=== PATIENT | male | born 1955 | race Caucasian/White ===

== ENCOUNTER 2019-06-06 08:23 | Outpatient (CLI) | payer BC, SELFPAY ==
[2019-06-06 08:44] LABS: Hematocrit 45.7 % (40.0-54.0); Hemoglobin 15.5 g/dL (14.0-18.0); Mean Corpuscular HGB Conc 33.9 g/dL (32.0-36.0); Mean Corpuscular Hemoglobin 29.5 pg (27.0-31.0); Mean Corpuscular Volume 86.9 fL (78.0-102.0); Mean Platelet Volume 9.2 fl (8.7-11.0); Platelet Count Result 215 K/mm3 (150-420); Red Blood Count 5.26 M/mm3 (4.70-6.10); Red Cell Distribution Width 13.3 % (11.6-14.4); White Blood Count 8.7 K/mm3 (4.8-10.8)
[2019-06-06 09:21] LABS: Anion Gap 13.7 mmol/L (7-16); Blood Urea Nitrogen 22 mg/dL (7-18); Carbon Dioxide 27 mmol/L (21-32); Chloride 107 mmol/L (98-108); Cholesterol 179 mg/dL (0-200); Estimated Glomerular Filt Rate 50; Glucose 90 mg/dL (70-99); HDL Direct 47 mg/dL (40-60); LDL Cholesterol Calculated 122 mg/dL (<130); Osmolality Calculated 299 mOsm/kg (285-295); Potassium 4.7 mmol/L (3.5-5.1); Sodium 143 mmol/L (136-145); Triglycerides 49 mg/dL (0-150)
[2019-06-08 21:07] LABS: H pylori, Urea Breath NOT DETECTED (NOT DETECTED)
== END 2019-06-06 08:24 | disposition home or self-care (01) ==
LOC: CHSLAB 08:28
PROVIDERS: PCP Family Medicine; Visit Provider Family Medicine
DX: Z00.00 Encounter for general adult medical examination without abnormal findings (principal); K21.9 Gastro-esophageal reflux disease without esophagitis; I10 Essential (primary) hypertension
CPT/HCPCS: 36415; 80048; 80061; 83013; 85027

== ENCOUNTER 2019-06-23 08:19 | Day surgery (SDC) | payer BC, SELFPAY | END 2019-06-23 11:45 | disposition home or self-care (01) | LOC: CHSSURGERY 08:21 | PROVIDERS: PCP Family Medicine; Visit Provider Surgery | DX: Z12.11 Encounter for screening for malignant neoplasm of colon (principal); D12.8 Benign neoplasm of rectum | CPT/HCPCS: 45380; 812; 88305; J2405; J2704; J7120 ==

== ENCOUNTER 2020-02-07 07:56 | Outpatient (CLI) | payer MEDICARE, SELFPAY ==
[2020-02-07 09:36] LABS: Prostate Specific Antigen 3.5 ng/mL (< OR = 4.0)
== END 2020-02-07 07:57 | disposition home or self-care (01) ==
LOC: CHSLAB 07:59
PROVIDERS: PCP Family Medicine; Visit Provider Family Medicine
DX: R35.0 Frequency of micturition (principal); Z12.5 Encounter for screening for malignant neoplasm of prostate
CPT/HCPCS: 36415; 84153; G0103

== ENCOUNTER 2021-01-24 13:26 | Outpatient (CLI) | payer MEDICARE, SELFPAY ==
--- NOTE | 2021-01-24 13:31 | ECHO_ITS ---
Patient Info Name: Calin Somers Age: 65 years : 1955 Gender: Male Ht: 70 in Wt: 205 lbs BSA: 2.17 m2 HR: 66 bpm BP: 146 / 82 mmHg Exam Date: 01/24/2021 1:42 PM Exam Location: [facility] [place] Patient Status: Outpatient Admit Date: 01/24/2021 Staff Ordering Physician: Meng Licea DO Shutdown Coordinator: Aditya Aranda, MACY, RT Attending Provider: Meng Licea DO Referring Physician: Anuja BROCK; Exam Type: CA echo doppler color flow Study Info Indications R01.1 - Cardiac murmur, unspecified Complete two-dimensional, color flow and Doppler transthoracic echocardiogram is performed. Summary 1. Complete two-dimensional, color flow and Doppler transthoracic echocardiogram is performed. 2. Left ventricular chamber dimension is normal. 3. Left ventricular systolic function is normal, estimated at 60-65%. 4. There is mildly increased left ventricular wall thickness. 5. The left ventricular diastolic function is abnormal. 6. E/e' 10 is mildly elevated. 7. Left atrial chamber dimension is moderately enlarged. 8. There is moderate mitral valve regurgitation. ERO 0.1 cm2, MR RF 9%. Left Ventricle E/e' 10 is mildly elevated. Left ventricular chamber dimension is normal. Left ventricular systolic function is normal, estimated at 60-65%. There is mildly increased left ventricular wall thickness. The left ventricular diastolic function is abnormal. Right Ventricle Right ventricular systolic function is normal and with normal TAPSE 1.8 cm. Right ventricular chamber dimension is normal. Left Atria Left atrial chamber dimension is moderately enlarged. Right Atria Right atrial chamber dimension is normal. Aortic Valve The aortic valve is trileaflet. There is no aortic valve stenosis. There is no aortic valve regurgitation. Pulmonic Valve There is no pulmonic regurgitation. Mitral Valve There is moderate mitral valve regurgitation. ERO 0.1 cm2, MR RF 9%. There is no mitral valve stenosis. Tricuspid Valve There is no tricuspid valve regurgitation. Pericardium/Pleural There is no pericardial effusion. Inferior Vena Cava Normal inferior vena cava with >50% collapse upon inspiration consistent with normal right atrial pressure, 5 mmHg. Aorta The aortic root size at the sinus of Valsalva is normal. Left Ventricular Outflow Tract Name Value Normal LVOT 2D LVOT Diameter 2.1 cm LVOT Doppler LVOT Peak Velocity 101 cm/s LVOT Peak Gradient 4 mmHg LVOT Mean Gradient 2 mmHg LVOT VTI 22 cm LVOT VTI/AV VTI Ratio 0.7 LVOT Stroke Volume 76 ml Mitral Valve Name Value Normal MV 2D/MM MV Annulus Diameter (4C) 3.8 cm <=4.4 MV Doppler
== END 2021-01-24 13:27 | disposition home or self-care (01) ==
LOC: CHSIMG 13:27
PROVIDERS: PCP Family Medicine; Visit Provider Family Medicine
DX: R01.1 Cardiac murmur, unspecified (principal)
CPT/HCPCS: 93306

== ENCOUNTER 2021-03-05 14:40 | Outpatient (CLI) | payer MEDICARE, SELFPAY ==
[2021-03-05 14:50] LABS: Hematocrit 43.5 % (37.0-46.0); Hemoglobin 14.8 g/dL (12.4-15.3); Mean Corpuscular Hemoglobin 29.7 pg (27.0-31.0); Mean Corpuscular Volume 87.2 fL (78.0-102.0); Mean Platelet Volume 8.9 fl (8.7-11.0); Platelet Count Result 232 K/mm3 (150-420); Red Blood Count 4.99 M/mm3 (4.70-6.10); Red Cell Distribution Width 12.9 % (11.6-14.4); White Blood Count 7.8 K/mm3 (4.8-10.8)
[2021-03-05 15:28] LABS: Alanine Aminotransferase 27 U/L (16-63); Albumin Level 3.8 g/dL (3.4-5.0); Alkaline Phosphatase 90 U/L (46-116); Anion Gap 10 mmol/L (8-16); Aspartate Amino Transferase 21 U/L (15-37); Bilirubin,Total 0.6 mg/dL (0.00-1.00); Blood Urea Nitrogen 16 mg/dL (7-18); Calcium 8.9 mg/dL (8.5-10.1); Carbon Dioxide 27 mmol/L (21-32); Chloride 104 mmol/L (98-108); Cholesterol 161 mg/dL (0-200); Estimated Glomerular Filt Rate 57; Glucose 91 mg/dL (70-99); HDL Direct 43 mg/dL (40-60); LDL Cholesterol Calculated 104 mg/dL (<130); Osmolality Calculated 293 mOsm/kg (285-295); Potassium 4.1 mmol/L (3.5-5.1); Prostate Specific Antigen 6.1 ng/mL (< OR = 4.0); Sodium 141 mmol/L (136-145); Total Protein 7.2 g/dL (6.4-8.2); Triglycerides 69 mg/dL (0-150)
== END 2021-03-05 14:41 | disposition home or self-care (01) ==
LOC: CHSLAB 14:41
PROVIDERS: PCP Family Medicine; Visit Provider Family Medicine
DX: R35.1 Nocturia (principal); R31.9 Hematuria, unspecified; I10 Essential (primary) hypertension
CPT/HCPCS: 36415; 80053; 80061; 84153; 85027

== ENCOUNTER 2021-04-22 14:33 | Outpatient (CLI) | payer MEDICARE, SELFPAY ==
[2021-04-25 11:26] LABS: PSA, Free 1.03 ng/mL; PSA, Total 2.9 ng/mL (<=4.0); Percent Free Prostate Spec Ag 36 % (>25)
== END 2021-04-22 14:34 | disposition home or self-care (01) ==
LOC: CHSLAB 14:35
PROVIDERS: PCP Family Medicine; Visit Provider Family Medicine
DX: R31.9 Hematuria, unspecified (principal); R97.20 Elevated prostate specific antigen [PSA]
CPT/HCPCS: 36415; 84153; 84154

== ENCOUNTER 2021-05-02 07:21 | Outpatient (CLI) | payer MEDICARE, SELFPAY ==
[2021-05-02 07:39] LABS: Add Urine Microscopic? NO; Appearance Urine Clear (Clear); Bilirubin Urine Negative (Negative); Blood Urine Negative (Negative); Color Urine Yellow (Yellow); Glucose Urine UA Negative (Negative); Ketones Urine Negative (Negative); Leukocyte Esterase Ur Negative LEU/UL (Negative); Nitrate Urine Negative (Negative); Protein Urine Negative (Negative); Urobilinogen Urine 0.2 mg/dL (0.2-1.0)
== END 2021-05-02 07:22 | disposition home or self-care (01) ==
LOC: CHSLAB 07:23
PROVIDERS: PCP Family Medicine; Visit Provider Family Medicine
DX: R31.9 Hematuria, unspecified (principal)
CPT/HCPCS: 81003

== ENCOUNTER 2021-08-14 14:33 | Outpatient (CLI) | payer MEDICARE, SELFPAY ==
--- NOTE | ~2021-08-14 | XR_ITS ---
EXAM: XR lumbar spine 2-3V HISTORY: worsening chronic low back pain NKI COMPARISON: None available FINDINGS: 5 nonrib-bearing lumbar-type vertebral bodies. Pedicles intact. Normal vertebral body alig nment. Vertebral body heights preserved. Multilevel mild disc narrowing and marginal osteophytosis, m ost advanced at L5-S1. Multilevel facet sclerosis and hypertrophy. IMPRESSION: Multilevel degenerative disc disease and facet arthropathy. Reviewed, dictated and finalized at location K.
== END 2021-08-14 14:34 | disposition home or self-care (01) ==
LOC: CHSIMG 14:39
PROVIDERS: PCP Family Medicine; Visit Provider Family Medicine
DX: M48.00 Spinal stenosis, site unspecified (principal)
CPT/HCPCS: 72100

== ENCOUNTER 2021-09-19 10:04 | Outpatient (CLI) | payer MEDICARE, SELFPAY ==
--- NOTE | ~2021-09-19 | XR_ITS ---
XR sacroiliac joints min 3V 09/19/2021 10:40 Indication: Left hip pain Procedure: 3 views left hip Comparison: No prior studies for comparison. Findings: The sacroiliac joints are symmetric bilaterally without significant degenerative change, er osion or ankylosis. Sacral foramen are symmetric. Surrounding osseous structures within normal limits . Impression: 1: No significant abnormality of the sacroiliac joints. Reviewed, dictated and finalized at location B. Impression: 1: No significant abnormality of the sacroiliac joints.
--- NOTE | ~2021-09-19 | XR_ITS ---
XR hip LT min 2V 09/19/2021 10:40 Indication: Left hip pain Procedure: 2 views left Comparison: No prior studies for comparison. Findings: Moderate osteoarthritis of the left hip. No fracture or traumatic malalignment. No soft tis duyen abnormality. No foreign bodies. Impression: 1: Moderate osteoarthritis of the left hip. Reviewed, dictated and finalized at location B. Impression: 1: Moderate osteoarthritis of the left hip.
== END 2021-09-19 10:05 | disposition home or self-care (01) ==
LOC: CHSIMG 10:08
PROVIDERS: PCP Family Medicine
DX: M16.12 Unilateral primary osteoarthritis, left hip (principal); M46.1 Sacroiliitis, not elsewhere classified; M25.552 Pain in left hip
CPT/HCPCS: 72202; 73502

== ENCOUNTER 2021-10-16 07:44 | Outpatient (CLI) | payer MEDICARE, SELFPAY ==
--- NOTE | ~2021-10-16 | CT_ITS ---
EXAMINATION: CT abdomen pelvis wo/w con DATE: 10/16/2021 08:52 INDICATION: Gross hematuria TECHNIQUE: Computed tomography (CT) of the abdomen and pelvis was performed without intravenous contr ast. CT of the abdomen and pelvis was then performed with a total of 130 mL Omnipaque 300 intravenous contrast using a double-bolus technique for simultaneous opacification of the renal parenchyma and r enal collecting system. The dose-length product (DLP) was 1827.99 mGy-cm. Automated exposure control and iterative reconstruction technique were employed. COMPARISON: None FINDINGS: There is mild atelectasis of the lower lobes, right greater than left. There is a small sli ding hiatal hernia. There is mild bilateral gynecomastia. The heart size is normal. Calcified coronar y artery atherosclerosis is present. Calcified subcarinal lymph nodes are consistent with old granulo matous disease. The liver, pancreas, gallbladder, and adrenal glands are normal. Punctate calcificati ons in an otherwise normal spleen likely represent healed granulomatous disease. No stones are identi fied in the kidneys, ureters, or bladder. There is no hydronephrosis or hydroureter. There are peripe lvic cysts of the kidneys. Cysts of the kidneys measure up to 12 mm on the left. No suspicious renal or urothelial lesion is identified. There is circumferential wall thickening of the urinary bladder. The prostate is enlarged. No pathologically enlarged abdominal or pelvic lymph nodes are identified. There is no free intraperitoneal gas or evidence of bowel obstruction. The appendix is normal. Small hydroceles are noted. There is severe lower lumbar spondylosis. IMPRESSION: 1. No CT correlate for the patient's symptoms. 2. Circumferential wall thickening of the urinary bladder which could reflect chronic outlet obstruct ion versus cystitis. Reviewed, dictated and finalized at location B. IMPRESSION: 1. No CT correlate for the patient's symptoms. 2. Circumferential wall thickening of the urinary bladder which could reflect c hronic outlet obstruction versus cystitis.
[2021-10-16 08:07] LABS: Estimated Glomerular Filt Rate 56
== END 2021-10-16 07:45 | disposition home or self-care (01) ==
LOC: CHSIMG 07:45
PROVIDERS: PCP Family Medicine; Visit Provider Urology
DX: R31.9 Hematuria, unspecified (principal)
CPT/HCPCS: 74178; Q9967

== ENCOUNTER 2023-02-06 07:17 | Outpatient (CLI) | payer MEDICARE, SELFPAY ==
--- NOTE | ~2023-02-06 | US_ITS ---
EXAMINATION: US carotid duplex BI DATE: 02/06/2023 14:09 INDICATION: Right headedness TECHNIQUE: Grayscale, color Doppler, and pulsed Doppler images of the cervical carotid arteries were obtained. The degree of vessel stenosis is placed in one of the following categories: normal, <50%, 5 0-69%, >=70% but less than near-occlusion, near-occlusion, or total occlusion. Note that percent sten osis relative to normal distal artery lumen diameter is indirectly measured from velocity measurement s as described by Bull, et al. Radiology 2003; 229:340-346. Notes: Normal: Peak systolic velocity <125 centimeters/sec and no plaque <50%. Peak systolic velocity <125 ( EDV <40; ICA/CCA PSV ratio <2.0; used these factors only a tandem lesions or low cardiac output or co ntralateral disease) 50-69 %: PSV 125-230 (EDV 40-100; ratio 2-4) >= 70% but less than near occlusion: PSV greater than 230 (EDV > 100; ratio> 4.0) Near Occlusion: PSV that is variable; markedly narrowed lumen Occlusion: Absent flow on color/spectral Doppler and no lumen on lin scale. COMPARISON: None. FINDINGS: RIGHT: The right common carotid artery (CCA) peak systolic velocity (PSV) is 118 cm/s. The right internal ca rotid artery (ICA) PSV is 90 cm/s. The right ICA end-diastolic velocity (EDV) is 16 cm/s. The right I CA/CCA PSV ratio is 0.76. The external carotid artery (ECA) PSV is 98 cm/s. There is antegrade flow i n the right vertebral artery. LEFT: The left CCA PSV is 106 cm/s. The left ICA PSV is 82 cm/s. The left ICA EDV is 36 cm/s. The left ICA/ CCA PSV ratio is 0.77. The ECA PSV is 121 cm/s. There is antegrade flow in the left vertebral artery . IMPRESSION: 1. Less than 50% stenosis in the right internal carotid artery by sonographic criteria. 2. Less than 50% stenosis in the left internal carotid artery by sonographic criteria. Reviewed, dictated and finalized at location B. IMPRESSION: 1. Less than 50% stenosis in the right internal carotid artery by sonographic c vasquez. 2. Less than 50% stenosis in the left internal carotid artery by sonographic cr ramona.
[2023-02-06 07:32] LABS: Basophils Absolute Auto 0.03 K/mm3 (0.00-0.10); Basophils Percent Auto 0.4 % (0.0-1.0); Eosinophils Absolute Auto 0.13 K/mm3 (0.02-0.50); Eosinophils Percent Auto 1.7 % (1.0-6.0); Hematocrit 43.5 % (37.0-46.0); Hemoglobin 14.7 g/dL (12.4-15.3); Immature Granulocyte Absolute 0.03 K/mm3 (0.00-0.00); Immature Granulocyte Percent A 0.4 % (0.0-0.0); Lymphocytes Percent Auto 10.7 % (18.0-42.0); Mean Corpuscular HGB Conc 33.8 g/dL (32.0-36.0); Mean Corpuscular Hemoglobin 29.9 pg (27.0-31.0); Mean Corpuscular Volume 88.4 fL (78.0-102.0); Mean Platelet Volume 9.2 fl (8.7-11.0); Monocytes Absolute Auto 0.62 K/mm3 (0.10-0.90); Monocytes Percent Auto 8.3 % (2.0-11.0); Neutrophils Absolute Auto 5.9 K/mm3 (1.7-7.2); Neutrophils Percent Auto 78.5 % (50.0-70.0); Platelet Count Result 206 K/mm3 (150-420); Red Blood Count 4.92 M/mm3 (4.70-6.10); White Blood Count 7.5 K/mm3 (4.8-10.8)
[2023-02-06 08:37] LABS: Alanine Aminotransferase 19 U/L (16-63); Albumin Level 3.6 g/dL (3.4-5.0); Alkaline Phosphatase 91 U/L (46-116); Anion Gap 9 mmol/L (8-16); Aspartate Amino Transferase 11 U/L (15-37); Blood Urea Nitrogen 23 mg/dL (7-18); Calcium 9.3 mg/dL (8.5-10.1); Carbon Dioxide 26 mmol/L (21-32); Chloride 107 mmol/L (98-108); Cholesterol 182 mg/dL (0-200); Estimated Glomerular Filt Rate 51; Glucose 88 mg/dL (70-99); HDL Direct 48 mg/dL (40-60); LDL Cholesterol Calculated 123 mg/dL (<130); Magnesium 1.9 mg/dL (1.8-2.4); Osmolality Calculated 296 mOsm/kg (285-295); Potassium 4.5 mmol/L (3.5-5.1); Sodium 142 mmol/L (136-145); Total Protein 6.9 g/dL (6.4-8.2); Triglycerides 57 mg/dL (0-150)
[2023-02-06 09:05] LABS: Thyroid Stimulating Hormone Reflex 3.94 u/IU/mL (0.36-3.74)
[2023-02-06 09:33] LABS: Free T4 Free Thyroxine Reflex 0.99 ng/dL (0.76-1.46)
== END 2023-02-06 07:18 | disposition home or self-care (01) ==
LOC: CHSIMG 07:18
PROVIDERS: PCP Family Medicine; Visit Provider Family Medicine
DX: E11.9 Type 2 diabetes mellitus without complications (principal); R42 Dizziness and giddiness; I10 Essential (primary) hypertension; R00.2 Palpitations; I65.23 Occlusion and stenosis of bilateral carotid arteries
CPT/HCPCS: 36415; 80053; 80061; 83735; 84439; 84443; 85025; 93880

== ENCOUNTER 2023-02-09 08:19 | Outpatient (CLI) | payer MEDICARE, SELFPAY ==
--- NOTE | 2023-02-11 12:35 | WPDHOLTEREM ---
Holter/Event Monitor Holter/Event Monitor Date of procedure: 02/09/23 Holter/Event Procedure: 48 Hr Holter Monitor Indications: Palpitations Conclusion: 1. 48 hour holter monitor on 02/09/23. 2. Predominant rhythm is sinus rhythm. HR range 42-117 bpm; average HR 63 bpm. HR at 42 bpm was at 01:41. 3. There are 34 premature supraventricular complexes and 18 supraventricular couplets. There are 3 episodes of atrial tachycardia, fastest at 132 bpm and longest lasting 10 beats. 4. There are 873 premature ventricular complexes, 5 ventricular couplets, 1 ventricular triplet, 50 ventricular bigeminy, and 3 ventricular trigeminy. There is one episode of ventricular tachycardia at 120 bpm lasting 7 beats at 05:32. 5. No sinoatrial or atrioventricular blocks. No significant pauses greater than 2 seconds. 6. No symptoms available for correlation.
== END 2023-02-09 08:20 | disposition home or self-care (01) ==
LOC: CHSCARD 08:20
PROVIDERS: PCP Family Medicine; Visit Provider Family Medicine
DX: I50.30 Unspecified diastolic (congestive) heart failure (principal); I38 Endocarditis, valve unspecified; I10 Essential (primary) hypertension
CPT/HCPCS: 93225; 93226

== ENCOUNTER 2023-08-13 08:55 | Outpatient (CLI) | payer MEDICARE, SELFPAY | END 2023-08-13 08:56 | disposition home or self-care (01) | LOC: CHSIMG 08:56 | PROVIDERS: PCP Family Medicine; Visit Provider Family Medicine | DX: M25.561 Pain in right knee (principal) | CPT/HCPCS: 73562 ==

== ENCOUNTER 2024-10-03 08:26 | Day surgery (SDC) | payer MEDICARE, SELFPAY ==
[2024-08-02 09:53] VITALS: BMI 28.8
[2024-10-03 08:45] VITALS: BP 168/85; PULSE 61; RESP 16; TEMP 36.8; O2SAT 100; BMI 29.0
--- NOTE | 2024-10-03 09:03 | P.PNAN_ITS ---
Anes - Eval Pre Procedure Procedure: Operation Date: 10/03/24 10:00 Proposed Procedures p Screening Colonoscopy - Frandy Hilton DO Date/Time: 10/03/24 09:03 Pre Op Diagnosis: History of Colon Polyps Patient Data Age: 69 Gender: M Height: 1.78 m Weight: 92 kg Last Vital Signs Temp 98.3 F 10/03/24 08:45 Pulse 61 10/03/24 08:45 Resp 16 10/03/24 08:45 BP 168/85 H 10/03/24 08:45 Pulse Ox 100 10/03/24 08:45 O2 Del Method Room Air 10/03/24 08:45 Allergies Allergy/AdvReac Type Severity Reaction Status Date / Time fentanyl Allergy Severe Nausea and Verified 09/22/24 13:13 Vomiting Home Medications ?Medication ?Instructions ?Recorded ?Confirmed ?Type finasteride 5 mg tablet 5 mg PO DAILY 02/05/23 10/03/24 History lisinopril 20 mg tablet See Rx Instructions .Route 07/18/24 10/03/24 Rx .COMPLEX #90 tabs metoprolol succinate 25 mg See Rx Instructions .Route 07/18/24 10/03/24 Rx tablet,extended release 24 hr .COMPLEX #90 tabs omeprazole 40 mg capsule,delayed See Rx Instructions .Route 09/12/24 10/03/24 Rx release .COMPLEX #90 caps Patient hx anesthesia problems: none Family hx anesthesia problems: none Prior surgeries: ASA2 Results Review: All pre-operative results and documents have been reviewed as part of the pre- operative evaluation. [facility] Past Medical History Medical History Hypertension GERD (gastroesophageal reflux disease) Overweight Surgical History Surgical History History of left knee surgery Orthoscopic. May 2013. Family History Family History Father Carcinoma of colon Social History Social History Smoking status: Never smoker Lack of Transportation: No Lack of Food: Never True Current Housing: I Have Housing Concerned About Future Housing: No Difficulty Paying Gas/Electric Bills: No Difficulty Paying for Meds: No Currently Unemployed: No Education: High School Diploma/GED Difficulty w/ Childcare or Family Care: No Living arrangements: with family Additional living arrangements comments: . Exam Day of Procedure 10/03/24 09:03 Heart: regular rate and rhythm Lungs: clear to auscultation Airway: Mallampati scale class II Neurological: alert and oriented
[2024-10-03] MEDS: LACTATED RINGERS 1,000 ML 150 ML IV CONT (09:05)
--- NOTE | 2024-10-03 09:39 | PM.IMHP ---
H&P: HPI History of Present Illness Date/Time: 10/03/24 09:39 Chief Complaint: hx colon polyps, fam hx colon cancer Narrative: 69 yo man presents for colonoscopy. Last done 5 years ago and polyp removed at that time. Father had colon cancer. Denies hematochezia or melena. Review of Systems Review of Systems: All systems reviewed & are unremarkable except as noted in HPI and below Constitutional: Constitutional: Denies chills, Denies fever(s), Denies headache(s) and Denies weight loss Eyes: Eyes: Denies change in vision ENT: Denies dizziness, Denies headache(s), Denies neck mass and Denies throat swelling Cardiovascular: Cardiovascular: Denies chest pain, Denies lightheadedness and Denies dyspnea Respiratory: Respiratory: Denies cough, Denies dyspnea and Denies wheezing Gastrointestinal: Gastrointestinal: Denies abdominal pain, Denies change in bowel habits, Denies nausea and Denies vomiting Genitourinary: Genitourinary: Denies hematuria and Denies dysuria Musculoskeletal: Musculoskeletal: Reports as per HPI Integumentary/Breasts: Skin/Breast: Reports as per HPI Neurologic: Denies dizziness and Denies headache(s) Allergic/Immunologic: Allergic/Immunologic: Denies throat swelling and Denies wheezing PMFSH Past Medical History Medical History Hypertension GERD (gastroesophageal reflux disease) Overweight Surgical History Surgical History History of left knee surgery Orthoscopic. May 2013. Family History Family History Father Carcinoma of colon Social History Social History Smoking status: Never smoker Lack of Transportation: No Lack of Food: Never True Current Housing: I Have Housing Concerned About Future Housing: No Difficulty Paying Gas/Electric Bills: No Difficulty Paying for Meds: No Currently Unemployed: No Education: High School Diploma/GED Difficulty w/ Childcare or Family Care: No Living arrangements: with family Additional living arrangements comments: . Meds Home Medications and Allergies Home Medications ?Medication ?Instructions ?Recorded ?Confirmed ?Type finasteride 5 mg tablet 5 mg PO DAILY 02/05/23 10/03/24 History lisinopril 20 mg tablet See Rx Instructions .Route 07/18/24 10/03/24 Rx .COMPLEX #90 tabs metoprolol succinate 25 mg See Rx Instructions .Route 07/18/24 10/03/24 Rx tablet,extended release 24 hr .COMPLEX #90 tabs omeprazole 40 mg capsule,delayed See Rx Instructions .Route 09/12/24 10/03/24 Rx release .COMPLEX #90 caps Allergies Allergy/AdvReac Type Severity Reaction Status Date / Time fentanyl Allergy Severe Nausea and Verified 09/22/24 13:13 Vomiting Vital Signs Vital Signs - 24 hr 10/03/24 08:45 Temperature 98.3 F Pulse Rate 61 Respiratory Rate 16 Blood Pressure 168/85 H Pulse Oximetry 100 Oxygen Delivery Room Air Exam Const: General: no acute distress and alert Orientation/consciousness: patient oriented x3 HENMT: Head: normocephalic and atraumatic Ears: hearing grossly normal bilaterally Face/Nose/Sinus: Normal nares present Mouth: Yes Normal oral and palatal mucosa present Eyes: Periorbital: periorbital findings normal Sclera: sclerae normal EOM: EOMs intact bilaterally Neck: Neck: normal visual inspection, no lymphadenopathy and trachea midline Chest: Chest palpation & inspection: normal inspection of the chest Resp: Effort & Inspection: normal respiratory effort Auscultation: clear to auscultation bilaterally Cardio: Jugular venous distension: no JVD Rate: regular rate Rhythm: regular rhythm Heart sounds: S1 normal heart sound present and S2 normal heart sound present Peripheral pulses: Peripheral pulses 2+ throughout GI: Inspection: normal to inspection GI Palp: Yes Soft to palpation, No Tenderness to palpation present (GI), No Guarding due to palpation present (GI) and No Rebound tenderness present Percussion: Yes normal to percussion Auscultation: normal bowel sounds : General: Yes no CVA tenderness Back/Spine/Pelvis: Back: no CVA tenderness Neuro: General: patient oriented x3, no focal motor deficits and CN's II-XI intact bilaterally Cognition (Neuro): normal cognition Speech: normal speech Motor exam (neuro): 5/5 motor strength present throughout Extrem: General: capillary refill normal and no clubbing, cyanosis or edema Assessment and Plan Assessment and plan (1) Hx of colonic polyps: Code(s): Z86.0100 - Personal history of colon polyps, unspecified Status: Acute Assessment and Plan: I have recommended colonoscopy. I have discussed the procedure, risks, benefits, and alternatives. Questions were answered. Patient is agreeable to proceed. (2) Family hx of colon cancer: Code(s): Z80.0 - Family history of malignant neoplasm of digestive organs Status: Acute
[2024-10-03 10:33] VITALS: BP 96/63; PULSE 53; RESP 14; O2SAT 99
--- NOTE | 2024-10-03 10:35 | WPDANESPN ---
Anes - Prog Note Post-Op Date/Time: 10/03/24 10:35 Vital Signs: Last Vital Signs Temp 98.3 F 10/03/24 08:45 Pulse 61 10/03/24 08:45 Resp 16 10/03/24 08:45 BP 168/85 H 10/03/24 08:45 Pulse Ox 100 10/03/24 08:45 O2 Del Method Room Air 10/03/24 08:45 Pain Score (VAS): no I/O: Intake & Output 10/02/24 10/03/24 10/03/24 23:59 07:59 15:59 Intake Total 200 Balance 200 Patient Feedback: Patient satisfied with anesthetic care.
[2024-10-03 10:43] VITALS: BP 116/73; PULSE 55; RESP 14; O2SAT 99
[2024-10-03 10:53] VITALS: BP 123/75; PULSE 55; RESP 16; O2SAT 98
== END 2024-10-03 11:03 | disposition home or self-care (01) ==
PROVIDERS: PCP Family Medicine; Visit Provider Surgery
PROC: 0DJD8ZZ Inspection of Lower Intestinal Tract, Via Natural or Artificial Opening Endoscopic (ICD-10-PCS; CPT 45378; principal; 2024-10-03 10:00)
DX: Z12.11 Encounter for screening for malignant neoplasm of colon (principal); D12.5 Benign neoplasm of sigmoid colon; K64.8 Other hemorrhoids; Z80.0 Family history of malignant neoplasm of digestive organs
CPT/HCPCS: 45385

== ENCOUNTER 2024-10-03 08:49 | Outpatient (NON) | payer MEDICARE, SELFPAY ==
--- NOTE | 2024-10-03 | S_PTH ---
PATIENT: Calin Somers LOC: [facility]#:[id number] AGE/SX: 69/M ROOM: RE10/03/[address]: Frandy Hilton DO : 1955 BED: DIS: 10/03/2024 SPEC #: [id number] RECD: 10/04/24 09:54 STATUS: ROSANNA REQ #: [id number] KRISS: 10/03/24 00:[address]: Frandy Hilton DEPT: [facility] Surgical RECD BY: Emery Meredith ENTERED: 10/04/24 09:54 SP TYPE: Surgical OTHR DR: Meng Licea DO Tissues: A - Colon Polypectomy Procedures: Hematoxylin and Eosin Stain Gross and Microscopic Level 4
== END 2024-10-03 08:50 | disposition home or self-care (01) ==
LOC: ANHLAB 10-04 08:55
PROVIDERS: PCP Family Medicine; Visit Provider Surgery
DX: D12.5 Benign neoplasm of sigmoid colon (principal)
CPT/HCPCS: 88305

== ENCOUNTER 2024-10-11 11:45 | Outpatient (CLI) | payer MEDICARE, SELFPAY ==
--- OUTSIDE RECORDS SUMMARY | 2024-10-11 11:48 | XMS_ITS | Clinical Summary ---
Author Organization [facility] Address [address] [place] [address] Care Team Providers Care Customer Leader Name Role Phone Meng Licea DO Primary Care Provider [phone] Allergies Active Allergy Reactions Criticality Noted Date Comments Fentanyl Vomiting 12/31/2020 Medications lisinopril 20 MG tablet Take 20 mg by mouth daily. Active tamsulosin 0.4 MG Cap Take 0.4 mg by mouth nightly. Active famotidine 40 MG tablet Take by mouth daily. Active Social History Tobacco Use Types Packs/Day Years Used Date Smoking Tobacco: Never Smokeless Tobacco: Never Alcohol Use Standard Drinks/Week Comments Never 0 (1 standard drink = 0.6 oz pur e alcohol) Sex and Gender Information Value Date Recorded Sex Assigned at Not on file Legal Sex Male 10:51 PM CDT Gender Identity Not on file Sexual Orientation Not on file Last Filed Vital Signs Vital Sign Reading Time Taken Comments Blood Pressure 139/68 01/07/2021 10:47 AM CDT Pulse 58 01/07/2021 10:47 AM CDT Temperature 37.1 C (98.8 F) 01/07/2021 8:39 AM CDT Respiratory Rate 16 01/07/2021 10:47 AM CDT Oxygen Saturation 99% 01/07/2021 10:47 AM CDT Inhaled Oxygen Concentration - - Weight 92.5 kg (204 lb) 12/31/2020 10:00 AM CDT Height 177.8 cm (5' 10) 12/31/2020 10:00 AM CDT Body Mass Index 29.27 12/31/2020 10:00 AM CDT Plan of Treatment Health Maintenance Due Date Last Done Comments Colorectal Cancer Screening Colonoscopy (10 Years) 1955 Hepatitis C 1972 DTaP, Tdap and Td Vaccines ( 1 - Tdap) 1973 Pneumococcal Vaccine: 50+ Years (1 of 1 - PCV) 2004 Zoster Vaccines (1 of 2) 2004 Annual Medicare Wellness Visit 08/14/2019 COVID-19 Vaccine (3 - 2023-2 5 season) 2023 06/22/2020, 06/01/2020 RSV Immunization or 60+ Years (1 - 1-dose 75+ series) 2029 Meningococcal B Vaccine Aged Out No l onger eligible based on patient's age to complete this topic Meningococcal Vaccine Aged Out No mitch jacek eligible based on patient's age to complete this topic RSV Immunizations Under 20 Months Aged Out No longer eligible b ased on patient's age to complete this topic Medical Devices Implanted Type Area Tinning Machine Set Up Operator Device Identifier Shelf Expiration Date Model / Serial / Lot Iol [employer] Zcb00 - [id number] Implanted:Qty: 1 on 12/03/2020 by Danilo Aldrich MD at [facility] Lens Left: Eye [employer] ZCB00 / [id number] / Iol [place] [employer] Zcb00 - [id number] Implanted:Qty: 1 on 01/07/2021 by Danilo Aldrich MD at [facility] Lens Right: Eye [employer] 02/24/2024 ZCB00 / [id number] / Insurance [facility] Care Teams Customer Leader Relationship Specialty Start Date End Date Meng Licea DO [address] [place] [address] PCP - General FAMILY PRACTICE 01/04/21
--- NOTE | 2024-10-11 11:54 | ECHO_ITS ---
Patient Info Name: Calin Somers Age: 69 years : 1955 Gender: Male Ht: 70 in Wt: 205 lbs BSA: 2.17 m2 HR: 73 bpm BP: 188 / 107 mmHg Technical Quality: Good Exam Date: 10/11/2024 11:55 AM Patient Status: O Admit Date: 10/11/2024 Exam Type: CA echo doppler color flow Complete two-dimensional, color flow and Doppler transthoracic echocardiogram is performed. Job Developer For Deaf Adults: Odilia Buck Attending Provider: Meng Licea Summary 1. Complete two-dimensional, color flow and Doppler transthoracic echocardiogram is performed. 2. Left ventricular chamber dimension is normal. 3. Left ventricular systolic function is normal, estimated at 55-60. 4. There is mild concentric increased left ventricular wall thickness. 5. The left ventricular diastolic function is abnormal. 6. E/e' 11 is mildly elevated. 7. Left atrial chamber dimension is severely enlarged. 8. There is mild aortic valve sclerosis. 9. There is moderate mitral valve regurgitation. 10. There is trace tricuspid valve regurgitation. 11. Mild pulmonary hypertension, estimated pulmonary arterial systolic pressure is 42 mmHg. Left Ventricle E/e' 11 is mildly elevated. Left ventricular chamber dimension is normal. Left ventricular systolic function is normal, estimated at 55-60. There is mild concentric increased left ventricular wall thickness. The left ventricular diastolic function is abnormal. Right Ventricle Right ventricular chamber dimension is normal. Right ventricular systolic function is normal and with normal TAPSE 2.4 cm. Left Atria Left atrial chamber dimension is severely enlarged. Right Atria Right atrial chamber dimension is normal. Aortic Valve The aortic valve is trileaflet. There is mild aortic valve sclerosis. There is no aortic valve stenosis. There is no aortic valve regurgitation. Pulmonic Valve There is no pulmonic regurgitation. Mitral Valve There is no mitral valve stenosis. There is moderate mitral valve regurgitation. Tricuspid Valve There is trace tricuspid valve regurgitation. Mild pulmonary hypertension, estimated pulmonary arterial systolic pressure is 42 mmHg. Pericardium/Pleural There is no pericardial effusion. Inferior Vena Cava Normal inferior vena cava with >50% collapse upon inspiration consistent with normal right atrial pressure, 5 mmHg. Aorta The aortic root size at the sinus of Valsalva is normal. Left Ventricular Outflow Tract Name Value Normal LVOT 2D LVOT Diameter 2.0 cm LVOT Doppler LVOT Peak Velocity 124 cm/s LVOT Peak Gradient 6 mmHg LVOT Mean Gradient 3 mmHg LVOT VTI 21 cm LVOT VTI/AV VTI Ratio 0.7 LVOT Stroke Volume 64 ml LVOT CO 4.4 l/min LVOT CI 2.0 l/min/m2 Pulmonic Valve Name Value Normal PV Doppler PV Peak Velocity 80 cm/s PV Peak Gradient 3 mmHg PV Regurgitation Doppler KS Peak End Diastolic Velocity 117 cm/s Mitral Valve Name Value Normal MV Doppler MV Peak Gradient 4 mmHg MV Mean Gradient 1 mmHg MV Area (Cont Eq VTI) 2.6 cm2 MV Regurgitation Doppler MR Peak Gradient 203 mmHg MV Diastolic Function MV E Peak Velocity 103 cm/s MV A Peak Velocity 60 cm/s MV E/A 1.7 MV Decel Time (PW) 237 ms MV Annular TDI MV E/e' (Septal) 15.6 MV E/e' (Lateral) 8.8 MV E/e' (Average) 12.2 Tricuspid Valve Name Value Normal TV Regurgitation Doppler TR Peak Velocity 306 cm/s TR Peak Gradient 30 mmHg Estimated PAP/RSVP RA Pressure 5 mmHg <=5 PA Systolic Pressure 42 mmHg <36 RV Systolic Pressure 42 mmHg <36 TV Annular TDI TV Lateral Maya s' Velocity 11.0 cm/s >=9.5 Aortic Valve Name Value Normal AV Doppler AV Peak Velocity 151 cm/s AV Peak Gradient 9 mmHg AV Mean Gradient 4 mmHg AV VTI 29 cm AV Area (Cont Eq VTI) 2.2 cm2 >=3.0 AV Area (Cont Eq Sandip) 2.5 cm2 AV DI (Sandip) 0.82 AV Regurgitation 2D LVOT Area 3.1 cm2 Ventricles Name Value Normal LV Dimensions 2D/MM IVS Diastolic Thickness (2D) 1.1 cm 0.6-1.0 LVID Diastole (2D) 5.6 cm 4.2-5.8 LVIW Diastolic Thickness (2D) 1.1 cm 0.6-1.0 LVID Systole (2D) 4.1 cm 2.5-4.0 LVOT Diameter 2.0 cm LV Mass (2D Cubed) 244.37 g 88.00-224.00 LV Mass Index (2D Cubed) 113 g/m2 49-115 Relative Wall Thickness (2D) 0.38 <=0.42 LV Fractional Shortening/Ejection Fraction 2D/MM LV Fractional Shortening (2D) 28 % 25-43 LV EF (2D Teichholz) 53 % LV Diastolic Volume (4C MOD) 85 ml LV EF (4C MOD) 56 % LV Diastolic Volume (2C MOD) 128 ml LV EF (2C MOD) 58 % LV Diastolic Volume (BP MOD) 104 ml 62-150 LV Diastolic Volume Index (BP MOD) 48 ml/m2 34-74 LV Systolic Volume (BP MOD) 47 ml 21-61 LV Systolic Volume Index (BP MOD) 22 ml/m2 11-31 LV EF (BP MOD) 55 % 52-72 LV Diastolic Length (4C) 8.3 cm LV Systolic Length (4C) 6.5 cm LV Stroke Volume (4C MOD) 48 ml Atria Name Value Normal LA Dimensions LA Volume (4C A-L) 119 ml LA Volume (BP A-L) 117 ml RA Dimensions RA Systolic [place] Length (4C) 5.5 cm 2.1-2.7 RA Area (4C) 11.9 cm2 <=18.0 Report Signatures
== END 2024-10-11 11:46 | disposition home or self-care (01) ==
LOC: CHSIMG 11:46
PROVIDERS: PCP Family Medicine; Visit Provider Family Medicine
DX: I27.20 Pulmonary hypertension, unspecified (principal); I08.0 Rheumatic disorders of both mitral and aortic valves
CPT/HCPCS: 93306

== ENCOUNTER 2024-11-09 07:08 | Outpatient (CLI) | payer MEDICARE, SELFPAY ==
--- OUTSIDE RECORDS SUMMARY | 2024-11-09 07:12 | XMS_ITS | Clinical Summary ---
Author Organization [facility] Address [address] [place] [address] Care Team Providers Care Advanced Practice Provider Name Role Phone Meng Licea DO Primary Care Provider [phone] Allergies Active Allergy Reactions Criticality Noted Date [...] this topic Medical Devices Implanted Type Area Rehabilitation Counsellor Device Identifier Shelf Expiration Date Model / Serial / Lot Iol [employer] Zcb00 - [id number] Implanted:Qty: 1 on 12/03/2020 by Danilo Aldrich MD at [facility] Lens Left: Eye [employer] ZCB00 / [id number] / Iol [employer] Zcb00 - [id number] Implanted:Qty: 1 on 01/07/2021 by Danilo Aldrich MD at [facility] Lens Right: Eye [employer] 02/24/2024 ZCB00 / [id number] / Insurance [facility] Care Teams Advanced Practice Provider Relationship Specialty Start Date End Date Meng Licea DO [address] [place] [address] PCP - General FAMILY PRACTICE 01/04/21
[2024-11-09 07:19] LABS: Hematocrit 41.0 % (37.0-46.0); Hemoglobin 13.7 g/dL (12.4-15.3); Immature Granulocyte Percent A 0.4 % (0.0-0.0); Lymphocytes Absolute Auto 0.94 K/mm3 (1.10-4.50); Mean Corpuscular HGB Conc 33.4 g/dL (32-36); Mean Corpuscular Hemoglobin 29.8 pg (27.0-31.0); Mean Corpuscular Volume 89.1 fL (78.0-102.0); Nucleated Red Blood Cells Absolute Auto 0.00 K/mm3 (0.00-0.00); Nucleated Red Blood Cells Perc 0.0 % (0-0.0); Platelet Count Result 212 K/mm3 (150-420); Red Blood Count 4.60 M/mm3 (4.70-6.10); White Blood Count 5.7 K/mm3 (4.8-10.8)
[2024-11-09 08:05] LABS: Alanine Aminotransferase 19 U/L (6-50); Albumin Level 3.8 g/dL (3.5-5.1); Alkaline Phosphatase 70 U/L (38-126); Anion Gap 4 mmol/L (4-12); Aspartate Amino Transferase 25 U/L (17-59); Bilirubin,Total 1.0 mg/dL (0.2-1.3); Blood Urea Nitrogen 16 mg/dL (9-20); Calcium 8.6 mg/dL (8.4-10.2); Carbon Dioxide 24 mmol/L (22-30); Chloride 113 mmol/L (98-107); Cholesterol 154 mg/dL (0-200); Estimated Glomerular Filt Rate 58; Glucose 88 mg/dL (65-110); HDL Direct 44 mg/dL; Magnesium 1.8 mg/dL (1.6-2.3); Osmolality Calculated 292 mOsm/kg (285-295); Potassium 4.5 mmol/L (3.4-5.0); Sodium 141 mmol/L (137-145); Total Protein 6.5 g/dL (6.3-8.2); Triglycerides 48 mg/dL (<150)
[2024-11-09 08:35] LABS: Thyroid Stimulating Hormone Reflex 5.020 uIU/mL (0.465-4.68)
[2024-11-09 09:05] LABS: Free T4 Free Thyroxine Reflex 1.08 ng/dL (0.78-2.19)
== END 2024-11-09 07:09 | disposition home or self-care (01) ==
LOC: CHSLAB 07:10
PROVIDERS: PCP Family Medicine; Visit Provider Internal Medicine Cardiovascular Disease
DX: I10 Essential (primary) hypertension (principal)
CPT/HCPCS: 36415; 80053; 80061; 83735; 84439; 84443; 84480; 85025

== ENCOUNTER 2024-12-03 19:55 | Outpatient (CLI) | payer MEDICARE, SELFPAY ==
[2024-12-27 12:52] VITALS: BMI 29.2
--- NOTE | 2024-12-27 12:52 | WPDSLEEPSTUD ---
Sleep Study Date of Study: 12/03/24 Ordering Provider: Zac Galvez DO Interpreting Physician: Nathalia Thompson DO Sleep Study Type: Split Polysomnogram Height: 1.78 m Weight: 92.533 kg Body Mass Index: 29.2 Neck Circumference (inches): 15 Stewart: 7 Reason for Sleep Study Witnessed apneas and snoring Sleep History The patient is a 69-year-old male that a sleep study ordered by the his scientist electronics for evaluation of sleep apnea. The patient occasionally awakens from sleep short of breath. He rarely awakens at night with heartburn, belching or cough. He constantly snores loudly enough that others complain. He occasionally has trouble sleeping when he has a cold. He occasionally wakes up gasping for air throughout the night. He frequently has breathing problems at night observed by himself or others. He denies sweating excessively at night. He occasionally has heart palpitations or irregular heartbeats during the night. He occasionally falls asleep during the day but never while driving. He denies sleep paralysis, cataplexy and hypnagogic/ hypnopompic hallucinations. He denies having trouble at school or work due to sleepiness. He denies feeling afraid of going to sleep. He denies having nightmares. He rarely remembers his dreams. He rarely has thoughts racing through his mind. He denies feeling sad, depressed or anxious. He rarely has muscular tension. He denies noticing parts of his body jerk. He occasionally kicks during the night. He occasionally has crawling and aching feelings in his legs and occasionally has leg pain during the night. He denies grinding his teeth during sleep and denies awakening with morning jaw pain. He is rarely bothered by pain during the day but occasionally awakened by pain during the night. He frequently wakes up feeling stiff in the morning. He frequently wakes up with sore or achy muscles. He frequently wakes up with pain in the neck, spine and other joints. He goes to bed between 9:00 p.m. to 1:00 a.m. every night. He takes him an hour to fall asleep. He wakes up 1-2 times throughout the night to urinate and is able to fall back asleep immediately. He wakes up between 3-5 a.m. every morning. He typically gets 3-4 hours of sleep per night. He currently lives with his . He denies consuming any caffeinated beverages within 2 hours of bedtime. He denies engaging in physical exercise before bedtime. He denies reading before falling asleep. He will watch television before falling asleep. He will take naps in afternoon or the evening and they are refreshing. He consumes 3 cups of caffeinated beverage per day. He denies tobacco, alcohol and recreational use. [facility] Past Medical History Medical History Hypertension GERD (gastroesophageal reflux disease) Overweight Surgical History Surgical History History of left knee surgery Orthoscopic. May 2013. Family History Family History Father Carcinoma of colon Social History Social History Smoking status: Never smoker Alcohol intake: never Substance use type: does not use Lack of Transportation: No Lack of Food: Never True Current Housing: I Have Housing Concerned About Future Housing: No Difficulty Paying Gas/Electric Bills: No Difficulty Paying for Meds: No Currently Unemployed: No Education: High School Diploma/GED Difficulty w/ Childcare or Family Care: No Living arrangements: with family Additional living arrangements comments: . Spiritual care concerns: No Medications Home Medications ?Medication ?Instructions ?Recorded ?Confirmed ?Type finasteride 5 mg tablet 5 mg PO DAILY 02/05/23 11/08/24 History omeprazole 40 mg capsule,delayed See Rx Instructions .Route 09/12/24 11/08/24 Rx release .COMPLEX #90 caps lisinopril 20 mg tablet See Rx Instructions .Route 10/17/24 11/08/24 Rx .COMPLEX #90 tabs eszopiclone 3 mg tablet (Lunesta) 3 mg PO ONCE #3 tabs 11/29/24 Rx metoprolol succinate 25 mg See Rx Instructions .Route 12/19/24 Rx tablet,extended release 24 hr .COMPLEX #90 ea Sleep Procedure A full night split study using the [place] multi-channel system recorded the standard physiologic parameters including EEG, EOG, submentalis EMG, anterior tibialis EMG, EKG, body position, nasal and oral airflow using nasal pressure sensor and thermistor.? Respiratory parameters of chest and abdominal movements were recorded with Respiratory Inductance Plethysmography belts. Oxygen saturation was recorded by pulse oximetry. Video monitoring was also performed. Sleep stages, periodic limb movements, and EEG arousals were scored in 30 second epochs according to the criteria of the AASM Scoring Manual. The Apnea-Hypopnea Index was calculated using [facility] guidelines for definition of hypopnea with 4% O2 desaturations while scoring respiratory events. Sleep Architecture During the diagnostic portion of the study, the total recording time was 166.3 minutes. The total sleep time was 143.0 minutes. Sleep latency was 5.8 minutes.? REM sleep was not achieved during this portion of the study. Sleep Efficiency was 86.0%. The patient had 15 awakenings for an awakening index of 6.3. Wake after sleep onset time was 17.5 minutes. The patient spent 37.0 minutes, 25.9% of total sleep time in Stage N1. The patient spent 106.0 minutes, 74.1% in Stage N2. The patient spent 0.0 minutes, 0.0% in Stage N3. The patient spent 0.0 minutes, 0.0% in Stage REM sleep. At 01:04:08 AM the patient was placed on PAP treatment and was titrated at pressures ranging from 5 cm H20 up to 16/8/10 cm H20. During the treatment portion of the study, the total recording time was 310.4 minutes.? The total sleep time was 251.5 minutes. Sleep latency was 1.5 minutes. REM latency was 58.0 minutes. Sleep Efficiency was 81.0%. Wake after Sleep Onset time was 57.0 minutes. The patient spent 59.5 minutes, 23.7% of total sleep time in Stage N1. The patient spent 133.5 minutes, 53.1% in Stage N2. The patient spent 0.0 minutes, 0.0% in Stage N3. The patient spent 58.5 minutes, 23.3% in Stage REM. Respiratory Analysis During the diagnostic portion of the study, the patient had 5 hypopneas, 3 obstructive apneas, 93 mixed apneas, and 35 central apneas for an overall Apnea Hypopnea Index of 56.6 events per hour. The REM Apnea Hypopnea Index was 0. The NREM Apnea Hypopnea Index was 56.6. The patient had a Central Apnea Hypopnea Index of 14.7. Rito-Hicks Respirations was present during this portion of the study. Circulation time was 30.5 seconds and cycle length was 58.3 seconds. During the treatment portion of the study, the patient had 29 hypopneas, 1 obstructive apnea, 1 mixed apnea and 94 central apneas for an overall Apnea Hypopnea Index of 29.8 events per hour. The REM Apnea Hypopnea Index was 15.4. The NREM Apnea Hypopnea Index was 34.2. The patient had a Central Apnea Hypopnea Index of 22.4. Rito-Hicks Respirations were preset during this portion of the study. The patient was started on CPAP 5 cm H2O and titrated to BPAP 16/8 cm H2O with back-up rate of 10 breaths/min. The patient was able to fall asleep starting on CPAP 5 cm H2O. The patient was able to achieve REM sleep starting on CPAP 8 cm H2O with EPR of 3. The patient was able to achieve a residual AHI of 0 with both NREM and REM sleep on the final pressure. On BPAP 16/8 cm H2O with BR 10 breaths/min, the patient spent 20 minutes in NREM and 22 minutes in REM with no respiratory events, resulting in an AHI of 0. The patient had a sleep efficiency of 85.7% on this pressure setting. Arousals During the diagnostic portion of the study, there were a total of 86 arousals for an arousal index of 36.1.? There were 36 respiratory arousals for an index of 15.1. There were 0 periodic limb movement arousals for an index of 0.? There was 1 isolated limb movement arousal for an index of 0.4. There were 49 spontaneous arousals for an index of 20.6. During the treatment portion of the study, there were a total of 91 arousals for an index of 21.7.? There were 25 respiratory arousals for an index of 6.0. There was 1 periodic limb movement arousals for an index of 0.2.? There were 5 isolated limb movement arousals for an index of 1.2. There were 60 spontaneous arousals for an index of 14.3. Periodic Limb Movements During the diagnostic portion of the study, the patient had 8 isolated limb movements with an index of 3.4. The patient had 0 periodic limb movements with an index of 0. The patient had a total of 8 limb movements with a total limb movement index of 3.4. During the treatment portion of the study, the patient had 33 isolated limb movements with an index of 7.9. The patient had 4 periodic limb movements with an index of 1.0. The patient had a total of 37 limb movements with a total limb movement index of 8.8. Oximetry Data During the diagnostic portion of the study, the patient had an average oxygen saturation of 93.9% in wake with a minimum oxygen saturation of 84% and a maximum oxygen saturation of 98%. The patient had an average oxygen saturation of 93.2% in sleep with a minimum oxygen saturation of 79.0% and a maximum oxygen saturation of 98.0%. The patient had 134 oxygen desaturations resulting in an Oxygen Desaturation Index of 56.2. The patient spent 21.2 minutes, 13.1% of total sleep time with an oxygen saturation less than 88%. During the treatment portion of the study, the patient had an average oxygen saturation of 97.3% in wake with a minimum oxygen saturation of 91.0% and a maximum oxygen saturation of 100.0%. The patient had an average oxygen saturation of 97.2% in sleep with a minimum oxygen saturation of 88.0% and a maximum oxygen saturation of 100.0%. The patient had 115 oxygen desaturations resulting in an Oxygen Desaturation Index of 27.9. The patient spent 0.1 minutes, 0.1% of total sleep time with an oxygen saturation less than 88%. Snoring Profile Moderate snoring was present in the baseline portion of the study. The snoring resolved once the patient was titrated to BPAP 12/6 cm H2O. Cardiac Profile The EKG lead showed normal sinus rhythm with occasional PVCs. On Epoch 513, the patient had a run of 5 PVCs. During the diagnostic portion of the study, the average pulse rate was 51.3 bpm.? The minimum pulse rate was 44.0 bpm. The maximum pulse rate was 72.0 bpm. During the treatment portion of the study, the average pulse rate was 47.5 bpm.? The minimum pulse rate was 41.0 bpm. The maximum pulse rate was 71.0 bpm. EEG Profile No signs of seizure activity seen. Assessment and Plan Assessment and Plan (1) Treatment-emergent central sleep apnea: Code(s): T81.89XA - Other complications of procedures, not elsewhere classified, initial encounter; G47.33 - Obstructive sleep apnea (adult) (pediatric); G47.37 - Central sleep apnea in conditions classified elsewhere Status: Acute Assessment and Plan: In the baseline portion of the study, the patient had an overall AHI of 56.6 with desaturation down to 79%. He had a central apnea index of 14.7. This is consistent with severe sleep apnea. The patient was started on CPAP 5 cm H2O and titrated to BPAP 16/8 cm H2O with back-up rate of 10 breaths/min. The patient's sleep apnea resolved on the final pressure setting. I recommend that the patient be prescribed BPAP 16/8 cm H2O with back-up rate of 10 breaths/min, size medium Resmed AirFit F30i mask, BPAP filters/tubing and heated humidity. This should be used with all episodes of sleep.? Compliance should be reviewed within 31-90 days of starting therapy for usage greater than 4 hours per night greater than 70% of the nights. The patient should be asked about symptoms such as?excessive daytime sleepiness, quality of sleep, decreased nocturia, increased?mental functioning such as memory, mood, and concentration. (2) Rito-Hicks respiration: Code(s): R06.3 - Periodic breathing Status: Acute Assessment and Plan: Rito-Hicks Respirations were present throughout the study. Circulation time was 30.5 seconds and cycle length was 58.3 seconds. The patient's echocardiogram in October 2024 showed an ejection fraction of 55-60%. Data The data obtained during this sleep study is adequate for interpretation. Certification This sleep study has been reviewed by a board certified sleep medicine physician.
== END 2024-12-04 07:27 | disposition home or self-care (01) ==
LOC: CHSCSM 19:57
PROVIDERS: PCP Family Medicine; Visit Provider Internal Medicine Cardiovascular Disease
DX: G47.10 Hypersomnia, unspecified (principal); T81.89XA Other complications of procedures, not elsewhere classified, initial encounter; G47.33 Obstructive sleep apnea (adult) (pediatric); G47.37 Central sleep apnea in conditions classified elsewhere; R06.3 Periodic breathing
CPT/HCPCS: 95811

== ENCOUNTER 2024-12-22 08:59 | Outpatient (CLI) | payer MEDICARE, SELFPAY ==
--- NOTE | ~2024-12-22 | NM_ITS ---
EXAMINATION: NM nannette stress w perfusion DATE: 12/22/2024 11:53 INDICATION: Chest pain TECHNIQUE: Rest images were obtained following intravenous administration of 10.36 mCi Tc99m tetrofosmin (Myoview). The patient was infused intravenously with Lexiscan (Regadenoson). Then, 33.0 mCi Tc99m tetrofosmin (Myoview) was administered intravenously, and stress images were obtained. Data was rec onstructed into short axis and horizontal and vertical long axis SPECT images. Gated SPECT images were also obtained. COMPARISON: None. FINDINGS: Large severe perfusion defect involving the apical to basilar inferior wall, the apical lateral segment and the mid and basilar inferolateral segments. There is a small region of mild reversible decreased uptake at the mid anterior segment equivocal for ischemia. There is normal left ventricular chamber size and ejection fraction. Suggestion of akinesis at the inferolateral wall of the left ventricle however assessment is limited by the nearly indiscernible activity in this region. Left ventricular ejection fraction measures 58%. IMPRESSION: 1. Large severe nonreversible infarct involving the inferior wall, apical lateral and mid and basilar inferolateral segments. 2. Equivocal small mild region of ischemia at the mid anterior segment. 3. Left ventricular ejection fraction measuring 58%. Reviewed, dictated and finalized at location A. IMPRESSION: 1. Large severe nonreversible infarct involving the inferior wall, apical later al and mid and basilar inferolateral segments. 2. Equivocal small mild region of ischemia at the mid anterior segment. 3. Left ventricular ejection fraction measuring 58%.
--- NOTE | 2024-12-22 09:20 | EST_ITS ---
Patient Info Name: Calin Somers Age: 69 years : 1955 Gender: Male Ht: 70 in Wt: 205 lbs BSA: 2.17 m2 Exam Date: 12/22/2024 9:20 AM Patient Status: O Admit Date: 12/22/2024 Exam Type: CA stress nannette w NM A regadenoson stress test was performed. Staff Referring Physician: Zac Galvez DO Attending Provider: Zac Galvez DO Exercise Technologist: Denise Baptiste Exercise Physician: Zac Galvez DO Summary 1. 1. Negative lexiscan stress test for ischemic ST changes by ECG criteria. 2. 2. Baseline hypertension. 3. 3. Nuclear scan to follow and will be reported separately. Please correlate with it. 4. 4. Patient informed of the above results. Protocol: Lexiscan Stress ECG Details Stage: REST Duration (min): 1 min : 43 sec HR (bpm): 51 SBP (mmHg): 150 DBP (mmHg): 85 Stage: REST Duration (min): 7 min : 57 sec HR (bpm): 56 SBP (mmHg): 150 DBP (mmHg): 85 Stage: STAGE 1 Duration (min): 1 min : 0 sec HR (bpm): 79 SBP (mmHg): 176 DBP (mmHg): 100 Stage: RECOVERY Duration (min): 1 min : 0 sec HR (bpm): 87 SBP (mmHg): 176 DBP (mmHg): 100 Stage: RECOVERY Duration (min): 2 min : 0 sec HR (bpm): 82 SBP (mmHg): 175 DBP (mmHg): 95 Stage: RECOVERY Duration (min): 3 min : 0 sec HR (bpm): 77 SBP (mmHg): 165 DBP (mmHg): 88 Stage: RECOVERY Duration (min): 4 min : 0 sec HR (bpm): 83 SBP (mmHg): 165 DBP (mmHg): 88 Stage: RECOVERY Duration (min): 5 min : 0 sec HR (bpm): 78 SBP (mmHg): 171 DBP (mmHg): 90 Stage: RECOVERY Duration (min): 6 min : 0 sec HR (bpm): 77 SBP (mmHg): 171 DBP (mmHg): 90 Stage: RECOVERY Duration (min): 7 min : 0 sec HR (bpm): 74 SBP (mmHg): 168 DBP (mmHg): 90 Stage: RECOVERY Duration (min): 7 min : 2 sec HR (bpm): 74 SBP (mmHg): 168 DBP (mmHg): 90 Rest HR: 56 bpm Peak HR: 90 bpm Rest Sys BP: 150 mmHg Peak Sys BP: 176 mmHg Max Pred HR: 150 bpm % Max Pred HR: 60 % Target HR: 128 bpm Max RPP: 15,840 bpm*mmHg Termination Reason: Completed protocol Cardiac Symptoms: Shortness of breath Total Time: 1 min : 0 sec Rest Ortega BP: 85 mmHg Peak Ortega BP: 100 mmHg Total Dose: 0.4 mg Resting ECG Sinus bradycardia. Stress ECG No ST changes. Arrhythmias None. Report Signatures
== END 2024-12-22 09:00 | disposition home or self-care (01) ==
PROVIDERS: PCP Family Medicine; Visit Provider Internal Medicine Cardiovascular Disease
DX: I21.19 ST elevation (STEMI) myocardial infarction involving other coronary artery of inferior wall (principal); I10 Essential (primary) hypertension
CPT/HCPCS: 78452; 93017; A9502; J2785

== ENCOUNTER 2025-01-19 00:33 | Day surgery (SDC) | payer MEDICARE, SELFPAY ==
[2025-01-18 11:12] VITALS: BMI 29.7
[2025-01-19] VITALS (17 sets, daily range): BP systolic 136–170; BP diastolic 77–99; PULSE 47–66; RESP 12–20; TEMP 36.1; O2SAT 94–99; BMI 29.4
[2025-01-19 10:19] LABS: Hematocrit 45.0 % (42.0-52.0); Hemoglobin 15.3 g/dL (14.0-18.0); Immature Granulocyte Percent A 0.5 % (0-0.5); Lymphocytes Absolute Auto 1.06 K/mm3 (0.9-3.2); Mean Corpuscular HGB Conc 34.0 g/dl (32-36); Mean Corpuscular Hemoglobin 29.5 pg (26-34); Mean Corpuscular Volume 86.7 fl (80-100); Nucleated Red Blood Cells Absolute Auto 0.000 K/mm3 (0.0-0.012); Nucleated Red Blood Cells Perc 0.0 % (0.0-0.2); Platelet Count Result 200 k/mm3 (150-375); Red Blood Count 5.19 M/mm3 (4.6-6.20); White Blood Count 6.5 K/mm3 (4.5-10.0)
[2025-01-19 10:32] LABS: Anion Gap 10 mmol/L (4-12); Blood Urea Nitrogen 17 mg/dL (9-20); Calcium 9.4 mg/dL (8.4-10.2); Carbon Dioxide 24 mmol/L (22-30); Chloride 107 mmol/L (98-107); Estimated CRCL calculation 50 ml/min; Estimated Glomerular Filt Rate 57; Glucose 94 mg/dL (65-110); Potassium 4.8 mmol/L (3.4-5.0); Sodium 141 mmol/L (137-145)
--- NOTE | 2025-01-19 10:41 | WPDHPUPDATE1 ---
History and Physical Update Update Date/Time: 01/19/25 10:41 History and Physical has been reviewed, including an updated exam of the patient. There are NO changes in the patient's condition. Risks, benefits, and alternatives have been discussed and questions answered. Patient agrees to proceed with procedure.
--- NOTE | 2025-01-19 10:41 | WPDMODSED ---
Moderate Sedation Note-Pt Data Patient Data Allergies Allergy/AdvReac Type Severity Reaction Status Date / Time fentanyl Allergy Severe Nausea and Verified 01/18/25 11:08 Vomiting Home Medications ?Medication ?Instructions ?Recorded ?Confirmed ?Type finasteride 5 mg tablet 5 mg PO DAILY 02/05/23 01/18/25 History omeprazole 40 mg capsule,delayed See Rx Instructions .Route 09/12/24 01/18/25 Rx release .COMPLEX #90 caps metoprolol succinate 25 mg See Rx Instructions .Route 12/19/24 01/18/25 Rx tablet,extended release 24 hr .COMPLEX #90 ea aspirin 81 mg tablet 81 mg PO DAILY 12/28/24 01/18/25 History lisinopril 20 mg tablet See Rx Instructions .Route 01/16/25 01/18/25 Rx .COMPLEX #90 tabs Sedation/Anesthesia: No previous sedation/anesthesia problems (including family history). [facility] Past Medical History Medical History Hypertension GERD (gastroesophageal reflux disease) Overweight Surgical History Surgical History History of left knee surgery Orthoscopic. May 2013. Family History Family History Father Carcinoma of colon Social History Social History Smoking status: Never smoker Alcohol intake: never Substance use type: does not use Lack of Transportation: No Lack of Food: Never True Current Housing: I Have Housing Concerned About Future Housing: No Difficulty Paying Gas/Electric Bills: No Difficulty Paying for Meds: No Currently Unemployed: No Education: High School Diploma/GED Difficulty w/ Childcare or Family Care: No Living arrangements: with family Additional living arrangements comments: . Spiritual care concerns: No Mod Sed Physical Exam Physical Exam Pre Procedural Exam: Normal: Lungs, Heart Rate and Heart Rhythm Hours since solid foods: 12 Hours since liquid intake: 12 Mallampati Classification: class II Internal Medicine - PN: Obj Da Vital Signs Vital Signs: Vital Signs - 24 hr 01/19/25 10:21 Temperature 36.1 C L Pulse Rate 66 Respiratory Rate 18 Blood Pressure 170/99 H Pulse Oximetry 99 Oxygen Delivery Room Air Labs 01/19/25 10:14 01/19/25 10:14 Labs: Laboratory Results - last 24 hr 01/19/25 10:14 WBC 6.5 RBC 5.19 Hgb 15.3 Hct 45.0 MCV 86.7 MCH 29.5 MCHC 34.0 RDW 13.3 Plt Count 200 MPV 9.2 Immature Gran % (Auto) 0.5 Neut % (Auto) 73.3 H Lymph % (Auto) 16.3 L [place] % (Auto) 7.5 Eos % (Auto) 1.8 Baso % (Auto) 0.6 Lymph # (Auto) 1.06 [place] # (Auto) 0.5 Eos # (Auto) 0.1 Baso # (Auto) 0.0 Abs Immat Gran (auto) 0.03 Absolute Neuts (auto) 4.8 Absolute Nucleated RBC 0.000 Nucleated RBC % 0.0 Sodium 141 Potassium 4.8 Chloride 107 Carbon Dioxide 24 Anion Gap 10 BUN 17 Creatinine 1.26 Estim Creat Clear Calc 50 Estimated GFR 57 L Glucose 94 Calcium 9.4 ASA Classification/Sedation ASA Classification/Sedation ASA Class: III Emergent: No Risks: Risks, benefits and alternatives explained and patient/family accepted plan for sedation. Patient re-evaluated immediately prior to sedation.
--- NOTE | 2025-01-19 11:25 | WPDCARDPROC ---
Cardiac Cath Procedure Note Date of procedure:: 01/19/25 Performing physician:: CATHETERIZATION LABORATORY REPORT Procedure Date: 01/19/2025 Referring Physician: Dr. Galvez Anesthesia: Versed and Fentanyl were ordered and given in my presence at 1105, procedure ended at 1122. Supervision of nurse, Mari Joe monitored moderate sedation with 2 Versed and 1mg Morphine was provided for 17 minutes. 4mg Zofran IVP x 2 was administered due to nausea and vomiting due to cross reactivity of morphine to fentanyl allergy. Pre-op Diagnosis: Abnormal stress test Post-op Diagnosis: Severe multivessel CAD Procedure(s): Left heart catheterization with coronary angiography Access Site: Right radial artery Brief History and Clinical Indications: 69 year with hypertension and severe sleep apnea who has been experiencing exertional shortness of breath for which a stress test was significantly abnormal for which a left heart catheterization with possible PCI was recommended. All risks, benefits and alternatives to left heart catheterization with or without percutaneous coronary intervention was discussed at length with the patient. Risk of complications including but not limited to bleeding, infection, arrhythmia, stroke, worsening kidney function, blood loss, groin hematoma, limb loss, emergency coronary artery bypass grafting, and even were discussed with the patient and all questions were answered. The patient understood and wished to proceed. Time out called, patient name, date of , medical record number, allergies, procedure performed, identify Machine Designer, patient and staff member concurred with accurate data, procedure carried on. Findings: LEFT HEART CATHETERIZATION FINDINGS: 1. Left main: The left main coronary artery is widely patent without any significant obstructive disease. 2. Left anterior descending: The LAD has severe 80% stenosis in the entire mid body spanning almost 1 cm in length. The 1st moderate caliber significant diagonal branch has 80% proximal stenosis. Intracoronary nitroglycerin 200 mcg was given and repeat angiography was performed without any changes to the degree of stenosis. 3. Left circumflex: The left circumflex artery provides 2 OM branches. OM1 has 10% ostial disease. OM2 is subtotal occluded with reconstitution distally from minimal antegrade flow. 4. Right coronary artery: The RCA is a moderate caliber dominant vessel. The proximal vessel has 80% severely calcified stenosis followed by diffuse 80% stenosis in the mid vessel. The right PDA has 70% stenosis. 5. Left ventricle: A. End-diastolic pressure 21 mmHg. B. LV gram deferred. C. No significant gradient across aortic valve on catheter pullback. 6. Opening AO pressure 139/79 and closing AO pressure 116/77 Description of Procedure: Informed consent signed and placed in the chart. Patient transferred to dental laboratory technician apprentice room. Prepped and draped in usual sterile fashion. 2% lidocaine injected subcutaneously in right wrist area. 22-gauge venipuncture catheter used to access the right radial artery with the Seldinger technique. 6-FR slender sheath placed in right radial artery. Nitroglycerin 200mcg, Verapamil 2.5mg, and Heparin 5000U was given intraarterial through the sheath. J wire advanced under fluoroscopy. 5F TIG diagnostic catheter crossed the aortic valve for LVEDP measurements and assessment of pullback gradients across the aortic valve. The catheter was then used to engage the Right Coronary Artery and Left Main Coronary Artery. Multiple orthogonal angiogram obtained and reviewed Hemostasis was achieved by application of TR band. Assessment: Multivessel severe CAD Post Operative Condition: Stable No significant blood loss Disposition: Home Plan: Recommend CABG. The above findings were discussed with the referring physician. Continue aggressive medical therapy and risk factor modification. [facility]
[2025-01-19] MEDS: SODIUM CHLORIDE 0.9% IV 600 ML 200 ML IV CONT (11:53)
== END 2025-01-19 16:04 | disposition home or self-care (01) ==
PROVIDERS: PCP Family Medicine; Visit Provider Internal Medicine
PROC: 4A023N7 Measurement of Cardiac Sampling and Pressure, Left Heart, Percutaneous Approach (ICD-10-PCS; CPT 93452; principal; 2025-01-19 11:30)
DX: I25.10 Atherosclerotic heart disease of native coronary artery without angina pectoris (principal); I10 Essential (primary) hypertension; K21.9 Gastro-esophageal reflux disease without esophagitis; G47.30 Sleep apnea, unspecified; Z79.82 Long term (current) use of aspirin; Z98.890 Other specified postprocedural states; Z80.0 Family history of malignant neoplasm of digestive organs
CPT/HCPCS: 36415; 80048; 85025; 93458; C1769; C1887; C1894; J1644; J2003; J2250; J2270; J2405; J7030; J7040

== ENCOUNTER 2025-02-16 12:31 | Outpatient (CLI) | payer MEDICARE, SELFPAY ==
[2025-02-16 12:57] LABS: Hematocrit 28.0 % (37.0-46.0); Hemoglobin 9.1 g/dL (12.4-15.3); Immature Granulocyte Percent A 1.6 % (0.0-0.0); Lymphocytes Absolute Auto 1.08 K/mm3 (1.10-4.50); Mean Corpuscular HGB Conc 32.5 g/dL (32-36); Mean Corpuscular Hemoglobin 29.4 pg (27.0-31.0); Mean Corpuscular Volume 90.6 fL (78.0-102.0); Nucleated Red Blood Cells Absolute Auto 0.00 K/mm3 (0.00-0.00); Nucleated Red Blood Cells Perc 0.0 % (0-0.0); Platelet Count Result 365 K/mm3 (150-420); Red Blood Count 3.09 M/mm3 (4.70-6.10); White Blood Count 12.5 K/mm3 (4.8-10.8)
[2025-02-16 12:58] LABS: Add Urine Microscopic? YES; Appearance Urine Clear (Clear); Glucose Urine UA Negative (Negative); Leukocyte Esterase Ur Negative (Negative); Nitrate Urine Negative (Negative); Specific Grav Ur 1.010 (1.010-1.020)
[2025-02-16 14:09] LABS: Alanine Aminotransferase 64 U/L (6-50); Albumin Level 3.8 g/dL (3.5-5.1); Alkaline Phosphatase 77 U/L (38-126); Anion Gap 12 mmol/L (4-12); Aspartate Amino Transferase 63 U/L (17-59); Bilirubin,Total 2.3 mg/dL (0.2-1.3); Blood Urea Nitrogen 25 mg/dL (9-20); Calcium 8.9 mg/dL (8.4-10.2); Carbon Dioxide 24 mmol/L (22-30); Chloride 104 mmol/L (98-107); Estimated Glomerular Filt Rate 55; Glucose 119 mg/dL (65-110); Osmolality Calculated 295 mOsm/kg (285-295); Potassium 5.0 mmol/L (3.4-5.0); Sodium 140 mmol/L (137-145); Total Protein 6.3 g/dL (6.3-8.2)
[2025-02-16 14:21] LABS: NT Pro B Type Natriuretic Pept 5050 pg/mL (19.9-100)
[2025-02-16 14:54] LABS: Troponin I 0.286 ng/mL (0.000-0.034)
== END 2025-02-16 12:32 | disposition home or self-care (01) ==
LOC: CHSLAB 12:31
PROVIDERS: PCP Family Medicine; Visit Provider Family Medicine
DX: I25.10 Atherosclerotic heart disease of native coronary artery without angina pectoris (principal); R31.9 Hematuria, unspecified; I50.9 Heart failure, unspecified
CPT/HCPCS: 36415; 80053; 81001; 83880; 84484; 85025